=== PATIENT | male | born 1970 | race Caucasian/White ===

== ENCOUNTER 2017-05-29 21:09 | Emergency (ER) | payer OTHER ==
--- NOTE | 2017-05-29 23:37 | EDM.PDOC ---
ED HPI GENERAL MEDICAL PROBLEM - General Chief Complaint: Upper Extremity Injury/Pain Stated Complaint: TIGHTNESS IN WRIST Time Seen by Provider: 05/29/17 23:31 Source of Information: Reports: Patient History Limitations: Reports: No Limitations - History of Present Illness INITIAL COMMENTS - FREE TEXT/NARRATIVE: 46-year-old male presents for evaluation and treatment of right wrist and hand swelling. Patient reports pain has been occurring intermittently for the last week. He states yesterday he appreciated swelling. He states he is unable to make a fist due to the pain and swelling. No numbness or tingling. No erythema or increased warmth. No fevers, chills, nausea or vomiting. Patient does have a past medical history of psoriatic arthritis. He was previously on methotrexate. States he did see the radio commentator recently. He was given topical diclofenac as well as a muscle relaxer. Right Wrist Pain Score (Numeric/FACES): 5 - Related Data Allergies Allergy/AdvReac Type Severity Reaction Status Date / Time No Known Allergies Allergy Verified 05/29/17 21:30 Home Meds: Home Meds Cyclobenzaprine [Flexeril] 5 mg PO BEDTIME 05/29/17 [History] Diclofenac/Benzalkonium Chlor [Ds Prep Kobe] 4 mg TOP BID 05/29/17 [History] Metoprolol Succinate [Toprol XL 50mg] 50 mg PO BID 05/29/17 [History] Prednisone [IJD: predniSONE] See Taper PO WITHBREAKFAST #15 tab 05/29/17 [Rx] Past Medical History Cardiovascular History: Reports: Hypertension Respiratory History: Reports: Sleep Apnea Musculoskeletal History: Reports: Arthritis, Fracture Other Musculoskeletal History: LEFT HAND SURGERY Dermatologic History: Reports: Psoriasis - Infectious Disease History Infectious Disease History: Reports: Chicken Pox, Shingles Social & Family History - Tobacco Use Smoking Status *Q: Never Smoker - Caffeine Use Caffeine Use: Reports: None - Recreational Drug Use Recreational Drug Use: No Review of Systems - Review of Systems Review Of Systems: See Below Constitutional: Denies: Chills, Fever GI/Abdominal: Denies: Nausea, Vomiting Musculoskeletal: Reports: Hand Pain (right), Joint Pain (right hand and wrist), Joint Swelling (right hand and wrist) Skin: Denies: Erythema Neurological: Denies: Numbness, Tingling ED EXAM, GENERAL - Physical Exam Exam: See Below Exam Limited By: No Limitations General Appearance: Alert, WD/WN, No Apparent Distress Eye Exam: Bilateral Eye: Normal Inspection Respiratory/Chest: No Respiratory Distress, Lungs Clear, Normal Breath Sounds Cardiovascular: Normal Peripheral Pulses, Regular Rate, Rhythm, No Murmur Peripheral Pulses: 2+: Radial (L), Radial (R) Extremities: Non-Tender, Normal Capillary Refill, Joint Swelling (right wrist and hand), Limited Range of Motion (due to swelling and pain,). No: Increased Warmth, Redness Neurological: Alert, Oriented, Normal Cognition Psychiatric: Normal Affect, Normal Mood Skin Exam: Warm, Normal Color Course - Vital Signs Last Recorded V/S: Last Vital Signs Temp 36.7 C 05/29/17 21:25 Pulse 73 05/29/17 21:25 Resp 18 05/29/17 21:25 BP 181/110 H 05/29/17 21:25 Pulse Ox 97 05/29/17 21:25 - Orders/Labs/Meds Meds: Medications Discontinued Medications Generic Name Dose Route Start Last Admin Trade Name Laly PRN Reason Stop Dose Admin Oxycodone/Acetaminophen 1 tab 05/29/17 23:39 05/29/17 23:49 Percocet 325-5 Mg PO 05/29/17 23:40 1 tab ONETIME ONE Administration Oxycodone/Acetaminophen 1 tab 05/29/17 23:39 05/29/17 23:50 Percocet 325-5 Mg PO 05/29/17 23:40 1 tab ONETIME ONE Administration Oxycodone/Acetaminophen 1 tab 05/29/17 23:39 05/29/17 23:50 Percocet 325-5 Mg PO 05/29/17 23:40 1 tab ONETIME ONE Administration Oxycodone/Acetaminophen 1 tab 05/29/17 23:40 05/29/17 23:51 Percocet 325-5 Mg PO 05/29/17 23:41 1 tab ONETIME ONE Administration Prednisone 40 mg 05/29/17 23:39 05/29/17 23:49 Prednisone PO 05/29/17 23:40 40 mg ONETIME ONE Administration - Radiology Interpretation Free Text/Narrative:: xray of the right hand shows diffuse degenerative changes. No acute fractures or dislocations. - Re-Assessments/Exams Free Text/Narrative Re-Assessment/Exam: 03/25/18 23:32 Reviewed the x-ray results with the patient. He does have diffuse degenerative change. This is likely a flare of his psoriatic arthritis. May also be gout, however, he does not have erythematous, warm joints.. Plan will be to treat with prednisone. Discharge instructions as documented. Departure - Departure Time of Disposition: 23:32 Disposition: Home, Self-Care 01 Condition: Fair Clinical Impression: Wrist swelling, Arthritis - Discharge Information Prescriptions: Prednisone [IJD: predniSONE] See Taper PO WITHBREAKFAST #15 tab Instructions: Arthritis Referrals: Troy Fisher MD [Primary Care Provider] - Forms: ED Department Discharge Additional Instructions: Take the prednisone as prescribed. 40 mg 3 days then 30 mg 3 days and 20 mg tabs 3 days and 10 mg 3 days. [id number] Tylenol or Motrin seen for pain. Percocet 1 tab every 4-6 hours as needed for severe pain over the Percocet. Percocet is habit-forming, take as few of these as needed to control your pain. Do not drive or operative machinery within 8 hours of taking Percocet. Follow-up with your primary care provider if your symptoms persist beyond the steroid taper. Please return to the ER if your symptoms change or worsen.
[2017-05-29] MEDS ORDERED: predniSONE 20 MG Tab PO ONE (23:39)
[2017-05-29] MEDS ORDERED: Acetaminophen/oxyCODONE 325-5 MG Tab PO ONE ×4 (23:39→23:40)
--- NOTE | 2017-05-30 09:34 | CR ---
Right hand: Four views of the right hand were obtained. Comparison: No previous study. Joint space narrowing is scattered within the DIP joints as well as MCP joints and within the fourth PIP joint. Degenerative change is noted at the CMC joint of the thumb. Joint space narrowing is noted about the distal navicular bone. No acute abnormality is definitely seen. Soft tissue swelling is present. Bony deformity is noted off the radial styloid process most likely representing old injury. Impression: 1. Diffuse degenerative change. 2. Areas of soft tissue swelling. 3. No definite acute bony abnormality is appreciated. Diagnostic code #3
== END 2017-05-29 23:50 | disposition home or self-care (01) ==
LOC: JD.ED 21:09
DX: M19.031 Primary osteoarthritis, right wrist (principal); I10 Essential (primary) hypertension; Z79.899 Other long term (current) drug therapy
CPT/HCPCS: 73130; 99283; A9270

== ENCOUNTER 2017-08-27 18:25 | Emergency (ER) | payer OTHER ==
--- NOTE | 2017-08-27 19:52 | EDM.PDOC ---
ED HPI GENERAL MEDICAL PROBLEM - General Chief Complaint: General Stated Complaint: LOWER RIGHT ABDOMINAL INJURY Time Seen by Provider: 08/27/17 19:05 Source of Information: Reports: Patient, Family () History Limitations: Reports: No Limitations - History of Present Illness INITIAL COMMENTS - FREE TEXT/NARRATIVE: Jr is a pleasant 47yo male presents to ED ambulatory accompanied by this evening after suffering a work related injury yesterday morning around 10am. He was working, attempting to screw something down with a lot of force behind it, the wrench slipped off and struck him in the mid right abdomen. He has had a dull ache there constantly since that time, pain will get worse and come in waves then becomes nauseous with this increase in pain. He has not vomited, is eating and drinking normally. He is passing flatus today, had normal /usual BM yesterday but not yet today which is not unusual for him. He and his are concerned for "internal injury". He has hx of HTN, SUMANTH wears CPAP. PCP is Dr. Fisher. He and his family moved to [place] for work from [place] around 9 months ago. Onset: Sudden Onset Date: 08/26/17 (1000) Duration: Day(s): Location: Reports: Abdomen Quality: Reports: Ache (dull ache since the injury), Sharp (sharp stabbing at times, accompanied by waves of nausea) Improves with: Reports: None Worsens with: Reports: None Context: Reports: Trauma Associated Symptoms: Denies: Confusion, Chest Pain, Cough, Fever/Chills, Loss of Appetite, Shortness of Breath Treatments PADDER: Reports: Acetaminophen (does help with discomfort) Right Lower Abdomen Pain Score (Numeric/FACES): 2 - Related Data Allergies Allergy/AdvReac Type Severity Reaction Status Date / Time No Known Allergies Allergy Verified 08/27/17 18:44 Home Meds: Home Meds Metoprolol Succinate [Toprol XL 50mg] 50 mg PO BID 05/29/17 [History] Acetaminophen [Tylenol] 2 tab PO BID 08/27/17 [History] Past Medical History Cardiovascular History: Reports: Hypertension Respiratory History: Reports: Sleep Apnea Musculoskeletal History: Reports: Arthritis, Fracture Other Musculoskeletal History: LEFT HAND SURGERY Dermatologic History: Reports: Psoriasis - Infectious Disease History Infectious Disease History: Reports: Chicken Pox, Shingles - Past Surgical History Musculoskeletal Surgical History: Reports: Other (See Below) Other Musculoskeletal Surgeries/Procedures:: wrist surgery Social & Family History - Tobacco Use Smoking Status *Q: Never Smoker Second Hand Smoke Exposure: No - Caffeine Use Caffeine Use: Reports: Soda - Recreational Drug Use Recreational Drug Use: No ED ROS GENERAL - Review of Systems Review Of Systems: See Below Constitutional: Reports: No Symptoms. Denies: Fever, Chills, Decreased Appetite (good appetite) HEENT: Reports: No Symptoms Respiratory: Reports: No Symptoms Cardiovascular: Reports: No Symptoms GI/Abdominal: Reports: Abdominal Pain, Flatus, Nausea (intermittent accompanied by waves of pain). Denies: Constipation, Diarrhea, Hematemesis, Hematochezia, Melena, Vomiting Neurological: Reports: No Symptoms Psychiatric: Reports: No Symptoms ED EXAM, GENERAL - Physical Exam Exam: See Below Exam Limited By: No Limitations General Appearance: Alert, WD/WN, No Apparent Distress Eye Exam: Bilateral Eye: EOMI, PERRL Nose: Normal Inspection Throat/Mouth: Normal Inspection Head: Atraumatic, Normocephalic Neck: Normal Inspection Respiratory/Chest: No Respiratory Distress, Lungs Clear, Normal Breath Sounds Cardiovascular: Normal Peripheral Pulses, Regular Rate, Rhythm, No Edema, No Murmur Peripheral Pulses: 2+: Dorsalis Pedis (L), Dorsalis Pedis (R) GI/Abdominal: Normal Bowel Sounds, Soft, No Organomegaly, No Distention, Tender (mild to mid right abdomen). No: Guarding, Rigid, Rebound (Male) Exam: Deferred Rectal (Males) Exam: Deferred Back Exam: Normal Inspection Extremities: Normal Inspection, Normal Range of Motion, Non-Tender, Normal Capillary Refill Neurological: Alert, Oriented, CN II-XII Intact, Normal Cognition Psychiatric: Normal Affect, Normal Mood Skin Exam: Warm, Dry, Intact. No: Ecchymosis (none noted to abdominal wall) Course - Vital Signs Last Recorded V/S: Last Vital Signs Temp 98 F 08/27/17 18:39 Pulse 87 08/27/17 18:39 Resp 18 08/27/17 18:39 BP 151/102 H 08/27/17 18:39 Pulse Ox 96 08/27/17 18:39 - Orders/Labs/Meds Orders: Active Orders 24 hr Category Date Time Status Abdomen 2V AP Flat Upright [CR] Stat Exams 08/27/17 19:53 Taken - Radiology Interpretation Free Text/Narrative:: Abdominal xray- flat and upright obtained, reviewed with Dr. Borrego- shows nonspecific bowel gas pattern, no air fluid levels or other acute findings. Will await radiologist final interp. - Re-Assessments/Exams Free Text/Narrative Re-Assessment/Exam: 08/27/17 20:37 Reviewed normal findings on xray with patient and . Reassurance provided. See DC instructions. Departure - Departure Time of Disposition: 20:38 Disposition: Home, Self-Care 01 Condition: Good Clinical Impression: Contusion of abdominal wall, initial encounter - Discharge Information Instructions: Contusion, [id number], Blunt Abdominal Trauma Referrals: Troy Fisher MD [Primary Care Provider] - Forms: ED Department Discharge Additional Instructions: Xray of abdomen, 2 view is with normal findings, no evidence of rupture or obstruction. Recommend push fluids, stool softner if needed to assure bowel movements daily. If unable to pass gas, worsening nausea with vomiting return to ER immediately. Follow up with Primary Care Provider if not improved by early next week or return to ER. You will need to follow up with PCP or [facility] for [facility] follow up - My Orders Last 24 Hours: My Active Orders 08/27/17 19:53 Abdomen 2V AP Flat Upright [CR] Stat - Assessment/Plan Last 24 Hours: My Active Orders 08/27/17 19:53 Abdomen 2V AP Flat Upright [CR] Stat
--- NOTE | 2017-08-29 07:07 | CR ---
Abdomen: Supine and upright views of the abdomen were obtained. Comparison: No prior study. Bowel gas pattern appears normal. No abnormal calcifications or soft tissue abnormality is seen. Bony structures are unremarkable for the patient's age. Impression: 1. Nothing acute is seen on two-view abdominal x-ray. Diagnostic code #1
== END 2017-08-27 20:50 | disposition home or self-care (01) ==
LOC: JD.ED 18:25
DX: S30.1XXA Contusion of abdominal wall, initial encounter (principal); I10 Essential (primary) hypertension; W22.8XXA Striking against or struck by other objects, initial encounter; Y99.0 Civilian activity done for income or pay; Z79.899 Other long term (current) drug therapy
CPT/HCPCS: 74019; 74019-26; 99283; 99284